=== PATIENT | female | born 1975 | race African-American/Black ===

== ENCOUNTER 2017-05-01 12:26 | Emergency (ER) | payer OTHER ==
[~2017-05-01] VITALS: Ht 154.9 cm; Wt 79.4 kg
--- NOTE | ~2017-05-01 | EKG ---
[place] [address] [facility] [place] [address] ELECTROCARDIOGRAM REPORT Name: WEDNESDAYLODAVID [facility] [id number] Admission: 05/01/17 Attend Phys: Discharge: 05/01/17 Date of : 73 Report #: [id number] THIS REPORT FOR: //name// [facility] ED Test Date: 2017-05-01 Test Time: 12:39:36 Pat Name: DAVID WEDNESDAY Department: Room: Gender: F [employer] Operator: WILL : 1975 Requested By: Edd Hinojosa Order Number: [id number] MD: Fidencio Ovalles Measurements Intervals [place] Rate: 76 P: 36 DE: 152 QRS: -17 QRSD: 104 T: 25 QT: 376 QTc: 423 Interpretive Statements Sinus rhythm RSR' in V1 or V2, probably normal variant Left ventricular hypertrophy No previous ECG available for comparison Electronically Signed On 05-03-2017 13:35:48 CDT by Fidencio Ovalles [email or web address] <ELECTRONICALLY SIGNED> By: Fidencio Ovalles MD, [facility] 05/03/17 1335 1239 1239 Fidencio Ovalles MD, FACC /EPI
[~2017-05-01 12:26] MED LIST: CYCLOBENZAPRINE5 MG PO; HYDROCODONE-AP1 EAC6 PO; PREDNISONE 20 M20 MG PO
[2017-05-01] MEDS ORDERED: CYCLOBENZAPRINE5 MG PO (13:00)
[2017-05-01] MEDS ORDERED: IBUPROFEN 800800 M1 PO (13:01)
[2017-05-01 13:36] LABS: ABSOLUTE NEUTROPHILS 10.2 thou/uL (1.4-8.2); BASOPHILS 0.8 % (0.0-2.0); EOSINOPHILS 1.1 % (0.0-3.0); HEMATOCRIT 38.3 % (37.0-47.0); HEMOGLOBIN 12.7 gm/dL (12.0-15.0); LYMPHOCYTES 24.6 % (24.0-44.0); MANUAL DIFF NO; MCH 26.9 pg (26.0-34.0); MCV 81.4 fL (80.0-100.0); MONOCYTES 7.5 % (1.0-8.0); PLATELET COUNT 348 thou/uL (150-400); RBC 4.71 mil/uL (4.20-5.00); RDW 14.7 % (10.5-14.5); WBC 15.5 thou/uL (4.0-11.0)
[2017-05-01 13:37] LABS: URINE BILIRUBIN NEGATIVE (Negative); URINE BLOOD NEGATIVE (Negative); URINE COLOR YELLOW; URINE GLUCOSE-RANDOM* NEGATIVE (Negative); URINE KETONES NEGATIVE (Negative); URINE PROTEIN (DIPSTICK) NEGATIVE (Negative); URINE UROBILINOGEN 0.2 E.U./dl (0.2-1.0)
[2017-05-01 13:38] LABS: URINE LEUKOCYTES-REFLEX 1+ (Negative)
[2017-05-01 13:43] LABS: CASTS None Seen /LPF (None Seen); CRYSTALS None Seen /LPF (None Seen); SQUAMOUS 0-3 Few /LPF (0-3); URINE RBC None Seen /HPF (0-2); URINE WBC-REFLEX 0-5 Rare /HPF (0-5)
[2017-05-01 13:47] LABS: ANION GAP 8 mmol/L (7-16); BUN 19 mg/dL (7-18); CHLORIDE 103 mmol/L (98-107); CO2 28 mmol/L (21-32); CREATININE 1.1 mg/dL (0.6-1.0); GLUCOSE 85 mg/dL (74-106); POTASSIUM 3.8 mmol/L (3.5-5.1); SODIUM 139 mmol/L (136-145)
[2017-05-01 13:55] LABS: ALKALINE PHOSPHATASE 120 U/L (46-116); SGOT 16 U/L (15-37); SGPT 21 U/L (30-65); TOTAL BILIRUBIN 0.2 mg/dL (<0.1-1.0); TOTAL PROTEIN 8.7 g/dL (6.4-8.2); TROPONIN-I < 0.04 ng/mL (<0.04-0.07)
[2017-05-01] MEDS ORDERED: OMEPRAZOLE 20 M20 M1 PO (14:17)
[2017-05-01] MEDS ORDERED: BENTYL 20 MG TA20 M1 PO (14:17)
[2017-05-01] MEDS ORDERED: ZOFRAN4 MG PO (14:17)
[2017-05-01 14:47] VITALS: BP 136/81
== END 2017-05-01 14:48 | disposition home or self-care (01) ==
LOC: ER 12:26
PROVIDERS: Emergency Medicine
DX: R07.89 Other chest pain (principal); R10.10 Upper abdominal pain, unspecified; R11.0 Nausea; Z90.710 Acquired absence of both cervix and uterus

== ENCOUNTER 2017-06-15 12:50 | Emergency (ER) | payer OTHER ==
[~2017-06-15] VITALS: Ht 160 cm; Wt 81.7 kg
[~2017-06-15 12:50] MED LIST changes: +BENTYL 20 MG TA20 M1 PO; +IBUPROFEN 800800 M1 PO; +OMEPRAZOLE 20 M20 M1 PO; +ZOFRAN4 MG PO
[2017-06-15 12:52] VITALS: BP 149/106
[2017-06-15] MEDS ORDERED: PREDNISONE 20 M20 MG PO (13:40)
[2017-06-15] MEDS ORDERED: FLEXERIL PO (13:40)
[2017-06-15] MEDS ORDERED: OXYCODONE HCL 55 MG PO (13:40)
== END 2017-06-15 13:53 | disposition home or self-care (01) ==
LOC: ER 12:50
DX: M54.5 Low back pain (principal); Z90.710 Acquired absence of both cervix and uterus

== ENCOUNTER 2019-10-13 15:52 | Emergency (ER) | payer OTHER ==
[~2019-10-13] VITALS: Ht 162.6 cm; Wt 79.8 kg
[~2019-10-13 15:52] MED LIST changes: +FLEXERIL PO; +OXYCODONE HCL 55 MG PO
[2019-10-13 15:53] VITALS: BP 127/84
[2019-10-13] MEDS ORDERED: AMOXICILLIN 50500 MG PO (16:44)
[2019-10-13] MEDS ORDERED: IBUPROFEN 800800 M1 PO (16:44)
== END 2019-10-13 17:00 | disposition home or self-care (01) ==
LOC: ER 15:52
DX: J11.83 Influenza due to unidentified influenza virus with otitis media (principal); Z90.89 Acquired absence of other organs; Z90.710 Acquired absence of both cervix and uterus